=== PATIENT | male | born 1960 | race Caucasian/White ===

== ENCOUNTER 2024-05-14 15:39 | Emergency (ER) | payer OTHER ==
[2024-05-14 16:08] VITALS: BP 142/87; PULSE 79; RESP 18; TEMP 98; BMI 17.4
[2024-05-14] MEDS ORDERED: DIPHTH,PERTUSS(ACELL),TET 0.5 ML DISP.SYRIN IM ONE (17:52)
[2024-05-14] MEDS: DIPHTH,PERTUSS(ACELL),TET 0.5 ML DISP.SYRIN IM ONE (17:55)
== END 2024-05-14 18:00 | disposition home or self-care (01) ==
LOC: FER 15:39
PROC: 3E0234Z Introduction of Serum, Toxoid and Vaccine into Muscle, Percutaneous Approach (ICD-10-PCS; principal; 2024-05-14)
DX: S40.211A Abrasion of right shoulder, initial encounter (principal); S30.810A Abrasion of lower back and pelvis, initial encounter; S80.211A Abrasion, right knee, initial encounter; S60.511A Abrasion of right hand, initial encounter; S40.811A Abrasion of right upper arm, initial encounter; W19.XXXA Unspecified fall, initial encounter; Z23 Encounter for immunization
CPT/HCPCS: 73090-TC-RT-FY; 73502-TC-RT-FY; 73562-TC-RT-FY; 90471; 90715; 99284-25